=== PATIENT | female | born 1995 | race Two or more races ===

== ENCOUNTER 2023-12-14 07:50 | Day surgery (SDC) | payer OTHER ==
[~2023-12-14 07:50] MED LIST: MOTRIN800 MG PO
[2023-12-14] MEDS ORDERED: MIDAZOLAM HCL 2 MG/2 ML VIAL IV ONE (14:00)
[2023-12-14] MEDS ORDERED: DIPHENHYDRAMINE HCL 50 MG/ML VIAL 1ML IV ONE ×2 (14:00)
[2023-12-14] MEDS ORDERED: fentaNYL CITRATE 50 MCG/ML AMPUL IV PUSH ONE (14:00)
== END 2023-12-14 15:35 | disposition home or self-care (01) ==
LOC: AMB-ENDOS 07:50
PROVIDERS: ATTEND Colon & Rectal Surgery
DX: K59.09 Other constipation (principal)

== ENCOUNTER 2023-12-17 13:51 | Emergency (ER) | payer OTHER ==
[~2023-12-17] VITALS: Ht 152.4 cm; Wt 81.6 kg
[2023-12-17 15:59] LABS: HEMATOCRIT 33.4 % (36.0-45.00); HEMOGLOBIN 11.2 g/dL (12.0-15.00); MEAN CELL VOLUME 77.1 fL (80.00-100.00); MEAN CORPUSCULAR HEMOGLOBIN 25.8 pg (27.00-32.0); MEAN CORPUSCULAR HGB CONC 33.5 g/dl (32.0-36.0); PLATELET COUNT 300 K/uL (150-450); RED BLOOD COUNT 4.33 M/uL (4.00-6.00); RED CELL DISTRIBUTION WIDTH 15.3 % (11.5-14.5)
[2023-12-17 16:32] LABS: CALCIUM 8.4 mg/dL (8.5-10.1); CREATININE SERUM 0.66 mg/dL (0.55-1.02); GFR 106.64; POTASSIUM 3.05 mEq/L (3.5-5.1)
[2023-12-17 16:56] LABS: PH,URINE 6.5 (5.0-8.0); URINE APPEARANCE Cloudy; URINE BILIRRUBIN Negative (NEGATIVE); URINE BLOOD Large; URINE COLOR Orange; URINE GLUCOSE Negative (NEGATIVE); URINE KETONE Trace (NEGATIVE); URINE LEUKOCYTE Small; URINE NITRATE Negative; URINE PROTEIN 30 (NEGATIVE)
[2023-12-17 17:00] LABS: URINE BACTERIA 188.9 uL (0.0-1933); URINE RBC 6662.3 uL (0.0-20.8); URINE WBC 131.2 uL (0.0-23.2)
[2023-12-17] MEDS ORDERED: CETIRIZINE HCL 5 MG/5 ML ML PO ONE (17:30)
[2023-12-17 17:50] LABS: URINE CAST 0.61 uL (0.0-1.40)
[2023-12-17 17:52] LABS: URINE YEAST NEGATIVE /hpf
== END 2023-12-17 17:26 | disposition home or self-care (01) ==
LOC: ER 13:53
PROVIDERS: Emergency Medicine
DX: N93.8 Other specified abnormal uterine and vaginal bleeding (principal); J32.8 Other chronic sinusitis